=== PATIENT | female | born 1950 | race Caucasian/White ===

== ENCOUNTER 2016-09-07 08:27 | Outpatient (CLI) | payer OTHER ==
[2016-09-07 11:51] LABS: ALT (SGPT) 13 U/L (8-55); AST (SGOT) 16 U/L (5-34); Albumin 4.1 g/dL (3.4-4.8); Alkaline Phosphatase 105 U/L (40-150); Anion Gap 14 mmol/L (10-20); BUN (Urea Nitrogen) 15 mg/dL (9.8-20.1); Bilirubin, Total 0.4 mg/dL (0.2-1.2); Calc. Creatinine Clearance 0 mL/min (70-130); Calcium 9.5 mg/dL (7.8-10.44); Carbon Dioxide 26 mmol/L (23-31); Cardiac Risk 3.8 (Less than 4.5); Chloride 105 mmol/L (98-107); Cholesterol 205 mg/dl (< 200 Desired); Estimated GFR-MDRD 70; Globulin 2.7 g/dL (2.4-3.5); Glucose 100 mg/dL (80-115); HDL Cholesterol 54 mg/dL (>60 Neg Risk); LDL Cholesterol, Calculated 135 mg/dL; Potassium 4.8 mmol/L (3.5-5.1); Protein, Total 6.8 g/dL (6.0-8.3); Sodium 140 mmol/L (136-145); Triglycerides 78 mg/dL (Less than 150)
[2016-09-07 17:38] LABS: Creatinine, Urine 162.38 mg/dL (47-110); Microalbumin/Creat Ratio 12.3 mg/g (Less than 30)
== END 2016-09-07 08:28 | disposition home or self-care (01) ==
LOC: NAVSJIPCSP 08:27
PROVIDERS: ATTEND Internal Medicine
DX: E11.9 Type 2 diabetes mellitus without complications (principal); I10 Essential (primary) hypertension
CPT/HCPCS: 36415; 80053; 80061; 82043; 83036

== ENCOUNTER 2024-03-08 00:21 | Emergency (ER) | payer MEDICARE, OTHER ==
[2024-03-08] MEDS ORDERED: diphenhydrAMINE 50 MG/ML VIAL ONE (00:36)
[2024-03-08] MEDS ORDERED: methylPREDNISolone Sod Succ/PF 125 MG/2 ML VIAL ONE (00:36)
== END 2024-03-08 01:38 | disposition home or self-care (01) ==
LOC: NAV ERS 00:21
DX: T78.3XXA Angioneurotic edema, initial encounter (principal); T46.4X1A Poisoning by angiotensin-converting-enzyme inhibitors, accidental (unintentional), initial encounter; I10 Essential (primary) hypertension
CPT/HCPCS: 96374; 96375; J1200; J2919